=== PATIENT | female | born 1995 | race Two or more races ===

== ENCOUNTER 2025-07-17 13:14 | Inpatient (IN) | payer OTHER ==
[~2025-07-17] VITALS: Ht 162.6 cm; Wt 97.6 kg
[2025-07-17] MEDS: SODIUM CHLORIDE 0.9% 1,000 ML IV ONE ×3 (13:55→15:45)
[2025-07-17 14:32] VITALS: PULSE 106; RESP 16; O2SAT 98
[2025-07-17] MEDS: levETIRAcetam 1000 mg/100ml 100 ML IV ONE (14:44)
[2025-07-17] MEDS: LORazepam 2MG/ML-1ML VIAL IV ONE (14:44)
[2025-07-17] MEDS: LORazepam 2MG/ML-1ML VIAL ONE (14:44)
[2025-07-17 14:47] LABS: Urine Protein, UAD Negative (Negative)
[2025-07-17 14:50] VITALS: PULSE 126; RESP 24; O2SAT 100
--- NOTE | 2025-07-17 15:32 | DVH ---
CT HEAD WITHOUT CONTRAST Indication: seizure EXAM DATE: 07/17/2025 03:06 PM COMPARISON: None TECHNIQUE: CT of the head without intravenous contrast. RADIATION DOSE: CTDIvol: 57 mGy, DLP: 1021 mGy*cm FINDINGS: There is no intracranial hemorrhage. There is no extra-axial fluid, mass, mass effect or midline shift. The ventricles are midline and normal in size. Basilar cisterns are patent. Stewart-white differentiation is maintained. Bilateral maxillary sinus air-fluid levels.. Imaged portion of the orbits are unremarkable. IMPRESSION: No intracranial hemorrhage or mass effect. Paranasal sinus disease.
[2025-07-17 15:55] LABS: Hematocrit 35.6 % (36.0-46.0); Hemoglobin 12.2 g/dL (12.2-16.2); Mean Corpuscular Hemoglobin 30.8 pg (28.0-32.0); Mean Corpuscular Volume 89.9 fL (80.0-100.0); Nucleated Red Blood Cells % 0.0 %
[2025-07-17 16:03] LABS: Anion Gap 13 (5-15); Potassium 4.2 mmol/L (3.5-5.1); Sodium 142 mmol/L (136-145)
[2025-07-17 16:05] LABS: Carbon Dioxide 20 mmol/L (20-31); Chloride 109 mmol/L (98-107)
[2025-07-17 16:09] LABS: BUN/Creatinine Ratio 13.3 (10.0-20.0); Blood Urea Nitrogen 10 mg/dL (9-23)
[2025-07-17 16:10] LABS: Glucose 107 mg/dL (74-106)
[2025-07-17 16:19] LABS: Calcium 8.5 mg/dL (8.7-10.4)
--- NOTE | 2025-07-17 17:04 | ED.PDOC ---
History of Present Illness HPI Comments 30-year-old female brought by paramedics she had a seizure witnessed by family member. Patient did have alcohol last night. She normally does not drink. States that she does not have a history of seizures. Mild abrasion on the lateral side of the tongue. No other injuries. Denies any past medical surgica l history. Chief Complaint: Seizure Time Seen by MD: 13:21 Reviewed Notes: Nurses Notes, Medications, Allergies Allergies: Coded Allergies: NO KNOWN ALLERGIES (Unverified , 07/17/25) Information Source: Patient, Emergency Med Personnel Mode of Arrival: EMS Severity: Moderate Timing: Hours Duration: Since onset Past Medical History PAST MEDICAL HISTORY: Denies Surgical History: Denies all surgeries SENIOR APPLICATIONS ARCHITECT History: No Pertinent SENIOR APPLICATIONS ARCHITECT History Social History Smoker: Non-Smoker Alcohol: Denies ETOH Use Drugs: Denies Drug Use Constitutional: denies: chills, diaphoresis, fatigue, fever, malaise, sweats, weakness, others EENTM: denies: blurred vision, double vision, ear bleeding, ear discharge, ear drainage, ear pain, ear ringing, eye pain, eye redness, hearing loss, mouth pain, mouth swelling, nasal discharge, nose bleeding, nose congestion, nose pain, photophobia, tearing, throat pain, throat swelling, voice changes, others Respiratory: denies: cough, hemoptysis, orthopnea, SOB at rest, shortness of breath, SOB with excertion, stridor, wheezing, others Cardiovascular: denies: chest pain, dizzy spells, diaphoresis, Dyspnea on exertion, edema, irregular heart beat, left arm pain, lightheadedness, palpitations, PND, syncope, others Gastrointestinal: denies: abdomen distended, abdominal pain, blood streaked bowels, constipated, diarrhea, dysphagia, difficulty swallowing, hematemesis, melena, nausea, poor appetite, poor fluid intake, rectal bleeding, rectal pain, vomiting, others Genitourinary: denies: abnormal vagina bleeding, burning, dyspareunia, dysuria, flank pain, frequency, hematuria, incontinence, pain, , vagina discharge, urgency, others Neurological: reports: seizure; denies: dizziness, fainting, headache, left sided numbness, left sided weakness, numbness, paresthesia, pre-existing deficit, right sided numbness, right sided weakness, speech problems, tingling, tremors, weakness, others Musculoskeletal: denies: back pain, gout, joint pain, joint swelling, muscle p ain, muscle stiffness, neck pain, others Integumetry: denies: bruises, change in color, change in hair/nails, dryness, laceration, lesions, lumps, rash, wounds, others Allergic/Immunocompromised: denies: Difficulty Healing, Frequent Infections, Hives, Itching, others Hematologic/Lymphatic: denies: anemia, blood clots, easy bleeding, easy bruising, swollen glands, others Endocrine: denies: excessive hunger, excessive sweating, excessive thirst, excessive urination, flushing, intolerance to cold, intolerance to heat, unexplained weight gain, unexplained weight loss, others Psychiatric: denies: anxiety, bipolar disorder, depression, hopeless, panic disorder, schizophrenia, sleepless, suicidal, others Physical Exam General Appearance: Moderate Distress HEENT: Normal ENT Inspection, Pharynx Normal, TMs Normal Neck: Full Range of Motion, Non-Tender, Normal, Normal Inspection Respiratory: Chest Non-Tender, Lungs Clear, No Accessory Muscle Use, No Respiratory Distress, Normal Breath Sounds Cardiovascular: No Edema, No JVD, No Murmur, No Gallop, Normal Peripheral Pulses, Regular Rate/Rhythm Breast Exam: Deferred Gastrointestinal: No Organomegaly, Non Tender, No Pulsatile Mass, Normal Bowel Sounds, Soft Genitalia: Deferred Pelvic: Deferred Rectal: Deferred Extremities: No calf tenderness, Normal capillary refill, Normal inspection, Normal range of motion, Non-tender, No pedal edema Musculoskeletal : Apperance: Normal Neurologic: Alert, pattern generator operator II-XII nml as Tested, No Motor Deficits, Normal Affect, Normal Mood, No Sensory Deficits Cerebellar Function: Normal Reflexes: Normal Skin: Dry, Normal Color, Warm Peripheral Pulses: 3+ Radial (R), 3+ Radial (L) Lymphatic: No Adenopathy Was a procedure done? Was a procedure done?: No Differential Dx Considerations may include: Seizure X-Ray, Labs, Meds, VS Vital Signs Date Time Temp Pulse Resp B/P (MAP) Pulse Ox O2 Delivery O2 Flow Rate FiO2 07/17/25 14:50 98.5 126 24 121/66 (84) 97 98.5 07/17/25 14:50 126 24 100 Nasal Cannula* 2 07/17/25 14:32 106 16 98 Room Air* 0 21 07/17/25 13:55 98.3 106 16 142/86 (104) 98 98.3 07/17/25 13:17 98.3 106 16 142/86 98 98.3 Lab Test 07/17/25 15:18 07/17/25 14:44 07/17/25 14:00 Range/Units White Blood Count 14.5 H 4.4-10.8 10^3/uL Red Blood Count 3.95 L 4.0-5.20 10^6/uL Hemoglobin 12.2 12.2-16.2 g/dL Hematocrit 35.6 L 36.0-46.0 % Mean Corpuscular Volume 89.9 80.0-100.0 fL Mean Corpuscular Hemoglobin 30.8 28.0-32.0 pg Mean Corpuscular Hemoglobin Concent 34.2 32.0-36.0 g/dL Red Cell Distribution Width 12.9 11.8-14.3 % Platelet Count 212 140-450 10^3/uL Mean Platelet Volume 8.9 6.9-10.8 fL Neutrophils (%) (Auto) 90.1 H 37.0-80.0 % Lymphocytes (%) (Auto) 4.7 L 10.0-50.0 % Monocytes (%) (Auto) 4.9 0.0-12.0 % Eosinophils (%) (Auto) 0.0 0.0-7.0 % Basophils (%) (Auto) 0.3 0.0-2.0 % Neutrophils # (Auto) 13.1 H 1.6-8.6 10 ^3/uL Lymphocytes # (Auto) 0.7 0.4-5.4 10 ^3/uL Monocytes # (Auto) 0.7 0-1.3 10 ^3/uL Eosinophils # (Auto) 0 0-0.8 10 ^3/uL Basophils # (Auto) 0 0-0.2 10 ^3/uL Nucleated Red Blood Cells 0.0 % Sodium Level 142 136-145 mmol/L Potassium Level 4.2 3.5-5.1 mmol/L Chloride Level 109 H 98-107 mmol/L Carbon Dioxide Level 20 20-31 mmol/L Anion Gap 13 5-15 Blood Urea Nitrogen 10 9-23 mg/dL Creatinine 0.75 0.550-1.02 mg/dL Glomerular Filtration Rate Calc 109 >90 mL/min BUN/Creatinine Ratio 13.3 10.0-20.0 Serum Glucose 107 H 74-106 mg/dL Calcium Level 8.5 L 8.7-10.4 mg/dL Plasma/Serum Blood Alcohol < 3.0 <10 mg/dL POC Glucose 118 H 70-106 mg/dl Urine Color Light-yellow Yellow Urine Clarity Cloudy H Clear Urine pH 6.5 5.0-9.0 Urine Specific [place] 1.011 1.001-1.035 Urine Protein Negative Negative Urine Ketones Negative Negative Urine Blood Trace H Negative /uL Urine Nitrite Negative Negative Urine Bilirubin Negative Negative Urine Urobilinogen Normal Negative mg/dL Urine Leukocyte Esterase 3+ Negative /uL Urine RBC 3 0 - 4 /hpf Urine Microscopic WBC 118 H 0-5 /HPF Urine Squamous Epithelial Cells Few <5 /hpf Urine Bacteria Few H None Seen /hpf Urine Glucose Normal Normal mg/dL Current Medications Medications (Trade) Dose Ordered Sig/[place] Route Start Time Stop Time Status Last Admin Sodium Chloride 1,000 ml @ 1,000 mls/hr Q1H ONCE IV 07/17/25 13:45 07/17/25 14:44 DC 07/17/25 13:55 Levetiracetam 100 ml @ 400 mls/hr ONCE ONCE IV 07/17/25 14:45 07/17/25 14:59 DC 07/17/25 14:44 Sodium Chloride 1,000 ml @ 1,000 mls/hr Q1H ONCE IV 07/17/25 14:45 07/17/25 15:44 DC 07/17/25 14:44 Lorazepam (Ativan Inj) 1 mg ONCE ONCE IV 07/17/25 14:45 07/17/25 14:46 DC 07/17/25 14:44 Ceftriaxone Sodium 50 ml @ 100 mls/hr ONCE ONCE IV 07/17/25 16:15 07/17/25 16:44 DC 07/17/25 16:44 Patient alert. Vitals stable. Had a seizure prior to coming. Answering questions. An hour after she was in the ER she did have a seizure witnessed by staff. Confused after the seizure. Establish intravenous access. Was given fluids. Was given Keppra. Urinalysis shows UTI. Was given Rocephin. Explained to the patient. Continue monitoring. Time of 1ST Reevaluation: 17:01 Reevaluation 1ST: Unchanged Patient Education/Counseling: Diagnosis, Treatment, Prognosis Family Education/Counseling: No Family Present SEPSIS Sepsis Screen Date sepsis recognized/suspect: Jul 17, 2025 Time Sepsis recognized/suspect: 1449 Recent Procedure: No On Antibiotic Therapy: No Respiratory Rate >20: Yes Heart Rate >90: Yes Temp<36 C (96.8 F) or >38.3 C: No SBP <90 or MAP <65 mmHG: No New Acute Mental Status Change: No Is the patient on CPAP, BIPAP,: No Physician Orders Head Without Contrast (07/17/25 14:39) Sodium Chloride 0.9% (07/17/25 14:45) Vital Signs Date Time Temp Pulse Resp B/P (MAP) Pulse Ox O2 Delivery O2 Flow Rate FiO2 07/17/25 14:50 98.5 126 24 121/66 (84) 97 98.5 07/17/25 14:50 126 24 100 Nasal Cannula* 2 28 07/17/25 14:32 106 16 98 Room Air* 0 21 07/17/25 13:55 98.3 106 16 142/86 (104) 98 98.3 07/17/25 13:17 98.3 106 16 142/86 98 98.3 Laboratory Tests Test 07/17/25 15:18 White Blood Count 14.5 10^3/uL (4.4-10.8) H Medications Medications Dose Ordered Sig/[place] Route Start Time Stop Time Status Last Admin Dose Admin Ceftriaxone Sodium 50 ml @ 100 mls/hr ONCE ONCE IV 07/17/25 16:15 07/17/25 16:44 DC 07/17/25 16:44 Levetiracetam 100 ml @ 400 mls/hr ONCE ONCE IV 07/17/25 14:45 07/17/25 14:59 DC 07/17/25 14:44 Lorazepam 1 mg ONCE ONCE IV 07/17/25 14:45 07/17/25 14:46 DC 07/17/25 14:44 Sodium Chloride 1,000 ml @ 1,000 mls/hr Q1H ONCE IV 07/17/25 13:45 07/17/25 14:44 DC 07/17/25 13:55 Sodium Chloride 1,000 ml @ 1,000 mls/hr Q1H ONCE IV 07/17/25 14:45 07/17/25 15:44 DC 07/17/25 14:44 Departure 1 Departure Time of Disposition: 17:02 Impression: Primary Impression: Metabolic encephalopathy Additional Impressions: Seizure Urinary tract infection Qualified Codes: N39.0 - Urinary tract infection, site not specified Disposition: ADMITTED INPATIENT Admit to: Med Surg Condition: Guarded Critical Care Note Critical Care Time?: No Stability Stability form required: No Heart Score Heart Score: Heart Score Response (Comments) Value History N/A 0 EKG N/A 0 Age N/A 0 Risk Factors N/A 0 Troponin N/A 0 Total 0 MANSOOR BARNETT MD Jul 17, 2025 17:04
[2025-07-17 18:15] LABS: Alanine Aminotransferase 19 U/L (7-40); Albumin 4.2 g/dL (3.2-4.8); Alkaline Phosphatase 63 U/L (46-116); Total Protein 6.4 g/dL (5.7-8.2)
[2025-07-17 18:18] LABS: Bilirubin, Direct < 0.1 mg/dL (<0.3); Bilirubin, Total 0.3 mg/dL (0.2-1.0)
[2025-07-17] MEDS ORDERED: ACETAMINOPHEN 325 MG TAB PO PRN (18:45)
[2025-07-17] MEDS ORDERED: ONDANSETRON HCL 4 MG/2 ML VIAL IV PRN (18:45)
[2025-07-17] MEDS ORDERED: LORazepam 2MG/ML-1ML VIAL IV PRN (19:00)
[2025-07-17] MEDS: LACTATED RINGER'S 1,000 ML IV ONE ×3 (19:11→22:30)
[2025-07-17] MEDS: THIAMINE 100mg/ml INJ (200mg/2ml VIAL) IV ONE (19:11)
--- NOTE | 2025-07-17 19:22 | DVH ---
CHEST RADIOGRAPH Indication: SOB Technique: Single frontal view of the chest was obtained Comparison: None FINDINGS: Lines and Tubes: None Lungs: No focal consolidation. Pleura: No effusion. No pneumothorax. Cardiomediastinal contours: Unremarkable Bones: No acute osseous abnormality. IMPRESSION: 1. No acute cardiopulmonary disease.
[2025-07-17 19:30] VITALS: PULSE 96; RESP 17; O2SAT 99
[2025-07-17 20:08] LABS: COVID19 ANTIGEN SOFIA FIA NEGATIVE (NEGATIVE)
[2025-07-17] MEDS: levETIRAcetam 500 mg/100ml 100 ML IV SCH (21:23)
--- NOTE | 2025-07-17 21:29 | DVHHPRES ---
History of Present Illness Resident Creating Document: JHNAIMAKIP RESIDENT History of Present Illness Patient is a 30-year-old female with no significant medical history who was brought to the ED via EMS after she had episode of seizure earlier this morning. As per the witness patient had a seizure-like activity with abnormal movement of her limbs, lip bite, no postictal confusion following which the EMS were called and the patient was brought to the ED for further evaluation. While in the ED patient had another seizure-like activity with incontinence. She does not report any history of seizure disorder/epilepsy. She is visiting her family and yesterday had quite a bit of alcohol. Denied any drug use. While in the ED patient was seen to have elevated WBC count with left shift, urinalysis positive for UTI, patient reported some suprapubic discomfort but denied any dysuria, fever, chills, nausea or vomiting, diarrhea, cough or phlegm. She reports that she recently recovered from a flu-like illness. Past medical history: None Surgical history: None Social history: Patient reports alcohol use quite often denies any drug use or smoking No home medications Review of Systems Constitutional: Yes: Weakness Eyes: No: Pain, Vision change, Conjunctivae inflammation, Eyelid inflammation, Other, Redness ENT: No: Ear pain, Ear discharge, Nose pain, Nose discharge, Nose congestion, Mouth pain, Mouth swelling, Throat pain, Throat swelling, Other Respiratory: No: Cough, Dry, Shortness of breath, SOB with excertion, Wheezing, Hemoptysis, Pleuritic Pain, Sputum, Wheezing, Other Cardiovascular: No: Chest Pain, Palpitations, Orthopnea, Paroxysmal Noc. Dyspnea, Edema, Lt Headedness, Other Gastrointestinal: No: Nausea, Vomiting, Abdominal Pain, Diarrhea, Constipation, Melena, Hematochezia, Other Genitourinary: Frequency Musculoskeletal: No: other, neck pain, shoulder pain, arm pain, back pain, hand pain, leg pain, foot pain Skin: No: Rash, Lesions, Jaundice, Bruising, Other Neurological: No: Weakness, Numbness, Incoordination, Change in speech, Confusion, Seizures, Other Allergies: Coded Allergies: NO KNOWN ALLERGIES (Unverified , 07/17/25) Medications Current Medications Medications Dose Ordered Sig/[place] Route Start Time Stop Time Status Last Admin Dose Admin Ceftriaxone Sodium 50 ml @ 100 mls/hr DAILY@09 IV 07/18/25 09:00 Levetiracetam 100 ml @ 400 mls/hr BID IV 07/17/25 22:00 Ondansetron HCl 4 mg Q6HPRN PRN IV 07/17/25 18:45 Acetaminophen 650 mg Q6HP PRN PO 07/17/25 18:45 Lorazepam 1 mg Q5MINP PRN IV 07/17/25 19:00 Exam Vital Signs Vital Signs Date Time Temp Pulse Resp B/P (MAP) Pulse Ox O2 Delivery O2 Flow Rate FiO2 07/17/25 19:30 96 17 99 Room Air* 0 21 07/17/25 19:30 98.9 111/63 (79) 98.9 Exam Skin - Patients skin is warm and dry. HEENT - normocephalic, atraumatic, moist mucous membranes, no conjunctival pallor, no icterus Neck - full ROM, no LAD, no JVD Pulmonary - B/L clear breath sounds without any wheezing or rales cardiovascular - regular S1,S2 heard, no added sounds, no murmurs heard. GI - soft, nontender abdomen. no hepatospleenomegaly. Bowel sounds normoactive Neurological - Patient is A/O X 4 . Bilateral upper extremity strength 5/5, bilateral lower extremity strength 5/5, no facial droop, normal speech, no tremor, no sensory deficiets. Labs/Xrays Labs Test 07/17/25 18:15 07/17/25 18:10 07/17/25 15:18 07/17/25 14:44 Range/Units Influenza Type A Antigen Negative Negative Influenza Type B Antigen Negative Negative SARS-CoV-2 Antigen (Rapid) Negative NEGATIVE Lactic Acid Level 1.3 0.4-2.0 mmol/L White Blood Count 14.5 H 4.4-10.8 10^3/uL Red Blood Count 3.95 L 4.0-5.20 10^6/uL Hemoglobin 12.2 12.2-16.2 g/dL Hematocrit 35.6 L 36.0-46.0 % Mean Corpuscular Volume 89.9 80.0-100.0 fL Mean Corpuscular Hemoglobin 30.8 28.0-32.0 pg Mean Corpuscular Hemoglobin Concent 34.2 32.0-36.0 g/dL Red Cell Distribution Width 12.9 11.8-14.3 % Platelet Count 212 140-450 10^3/uL Mean Platelet Volume 8.9 6.9-10.8 fL Neutrophils (%) (Auto) 90.1 H 37.0-80.0 % Lymphocytes (%) (Auto) 4.7 L 10.0-50.0 % Monocytes (%) (Auto) 4.9 0.0-12.0 % Eosinophils (%) (Auto) 0.0 0.0-7.0 % Basophils (%) (Auto) 0.3 0.0-2.0 % Neutrophils # (Auto) 13.1 H 1.6-8.6 10 ^3/uL Lymphocytes # (Auto) 0.7 0.4-5.4 10 ^3/uL Monocytes # (Auto) 0.7 0-1.3 10 ^3/uL Eosinophils # (Auto) 0 0-0.8 10 ^3/uL Basophils # (Auto) 0 0-0.2 10 ^3/uL Nucleated Red Blood Cells 0.0 % Sodium Level 142 136-145 mmol/L Potassium Level 4.2 3.5-5.1 mmol/L Chloride Level 109 H 98-107 mmol/L Carbon Dioxide Level 20 20-31 mmol/L Anion Gap 13 5-15 Blood Urea Nitrogen 10 9-23 mg/dL Creatinine 0.75 0.550-1.02 mg/dL Glomerular Filtration Rate Calc 109 >90 mL/min BUN/Creatinine Ratio 13.3 10.0-20.0 Serum Glucose 107 H 74-106 mg/dL Calcium Level 8.5 L 8.7-10.4 mg/dL Total Bilirubin 0.3 0.2-1.0 mg/dL Direct Bilirubin < 0.1 <0.3 mg/dL Aspartate Amino Transferase (AST) 25 13-40 U/L Alanine Aminotransferase (ALT) 19 7-40 U/L Alkaline Phosphatase 63 46-116 U/L Total Protein 6.4 5.7-8.2 g/dL Albumin 4.2 3.2-4.8 g/dL Beta HCG, Quantitative 1.3 L 1.5-4.2 mIU/mL Plasma/Serum Blood Alcohol < 3.0 <10 mg/dL POC Glucose 118 H 70-106 mg/dl Test 07/17/25 14:00 Range/Units Urine Color Light-yellow Yellow Urine Clarity Cloudy H Clear Urine pH 6.5 5.0-9.0 Urine Specific [place] 1.011 1.001-1.035 Urine Protein Negative Negative Urine Ketones Negative Negative Urine Blood Trace H Negative /uL Urine Nitrite Negative Negative Urine Bilirubin Negative Negative Urine Urobilinogen Normal Negative mg/dL Urine Leukocyte Esterase 3+ Negative /uL Urine RBC 3 0 - 4 /hpf Urine Microscopic WBC 118 H 0-5 /HPF Urine Squamous Epithelial Cells Few <5 /hpf Urine Bacteria Few H None Seen /hpf Urine Glucose Normal Normal mg/dL SEPSIS Sepsis Screen Date sepsis recognized/suspect: Jul 17, 2025 Time Sepsis recognized/suspect: 1929 Recent Procedure: No On Antibiotic Therapy: No Respiratory Rate >20: No Heart Rate >90: Yes Temp<36 C (96.8 F) or >38.3 C: No SBP <90 or MAP <65 mmHG: No New Acute Mental Status Change: No Is the patient on CPAP, BIPAP,: No Physician Orders Head Without Contrast (07/17/25 14:39) Admit (07/17/25 17:50) Oxygen By Nasal Cannula (07/17/25 17:50) Stat Ekg For Chest Pain (07/17/25 17:50) Notify Md Of Changes From Base (07/17/25 17:50) Burn Center Nurse For 24 Hours (07/17/25 17:50) Emergency Dysrhythmia Protocol (07/17/25 17:50) Blood Culture (07/17/25 17:50) Urine Bacterial Culture (07/17/25 17:50) Chest Xray 1 View (07/17/25 17:50) Ceftriaxone 1gm/50ml (Rocephin) (07/18/25 09:00) * Neurology Consult (07/17/25 18:34) Levetiracetam 500 Mg/100ml (Levetiraceta (07/17/25 22:00) Ondansetron Hcl (Zofran) (07/17/25 18:45) Acetaminophen Tablet (Tylenol Tablet) (07/17/25 18:45) Lactated Ringer's (07/17/25 20:00) Regular Diet (07/18/25 Breakfast) Lorazepam 2mg/Ml Inj (Ativan Inj) (07/17/25 19:00) Complete Blood Count (07/18/25 04:00) Basic Metabolic Panel (07/18/25 04:00) Vital Signs Date Time Temp Pulse Resp B/P (MAP) Pulse Ox O2 Delivery O2 Flow Rate FiO2 07/17/25 19:30 96 17 99 Room Air* 0 21 07/17/25 19:30 98.9 96 17 111/63 (79) 99 98.9 07/17/25 17:31 98.6 104 15 107/71 (83) 98 98.6 07/17/25 14:50 98.5 126 24 121/66 (84) 97 98.5 07/17/25 14:50 126 24 100 Nasal Cannula* 2 28 07/17/25 14:32 106 16 98 Room Air* 0 21 07/17/25 13:55 98.3 106 16 142/86 (104) 98 98.3 Laboratory Tests Test 07/17/25 15:18 07/17/25 18:10 White Blood Count 14.5 10^3/uL (4.4-10.8) H Lactic Acid Level 1.3 mmol/L (0.4-2.0) Medications Medications Dose Ordered Sig/[place] Route Start Time Stop Time Status Last Admin Dose Admin Ceftriaxone Sodium 50 ml @ 100 mls/hr ONCE ONCE IV 07/17/25 16:15 07/17/25 16:44 DC 07/17/25 16:44 100 MLS/HR Lactated Ringer's 1,000 ml @ 100 mls/hr Q10H ONCE IV 07/17/25 20:00 07/18/25 05:59 07/17/25 20:22 100 MLS/HR Lactated Ringer's 1,000 ml @ 500 mls/hr Q2H ONCE IV 07/17/25 18:00 07/17/25 19:59 DC 07/17/25 19:11 500 MLS/HR Levetiracetam 100 ml @ 400 mls/hr ONCE ONCE IV 07/17/25 14:45 07/17/25 14:59 DC 07/17/25 14:44 400 MLS/HR Lorazepam 1 mg ONCE ONCE IV 07/17/25 14:45 07/17/25 14:46 DC 07/17/25 14:44 1 MG Sodium Chloride 1,000 ml @ 1,000 mls/hr Q1H ONCE IV 07/17/25 13:45 07/17/25 14:44 DC 07/17/25 13:55 1,000 MLS/HR Sodium Chloride 1,000 ml @ 1,000 mls/hr Q1H ONCE IV 07/17/25 14:45 07/17/25 15:44 DC 07/17/25 14:44 1,000 MLS/HR Thiamine HCl 100 mg ONCE ONCE IV 07/17/25 18:30 07/17/25 18:35 DC 07/17/25 19:11 100 MG Assessment/Plan Assessment/Plan Seizures likely from sepsis/dehydration, r/o neurological cause Sepsis likely due to UTI - blood culture, urine culture pending - IV ceftriaxone - IV fluids - head CT showed no intracranial hemorrhage or mass effect, paranasal sinus disease seen - Keppra 500 IV b.i.d. - neurology consult PUD prophylaxis: Protonix Goals of care discussed with the patient and her boyfriend at bedside for over 90 minutes. Full code Time spent: 32 minutes Plan discussed with Dr. Horton Plan discussed with: Patient, Other (partner, RN) My Orders Orders - KIP CM RESIDENT Procedure Category Date Status Time Admit ADMIT 07/17/25 Transmitted 17:50 Oxygen By Nasal RT 07/17/25 Transmitted Cannula 17:50 Stat Ekg For Chest [facility] 07/17/25 In Process Pain 17:50 Notify Of Changes [facility] 07/17/25 In Process From Base 17:50 Burn Center Nurse For [facility] 07/17/25 In Process 24 Hours 17:50 Emergency Dysrhythmia [facility] 07/17/25 In Process Protocol 17:50 Blood Culture [facility] 07/17/25 In Process 17:50 Urine Bacterial [facility] 07/17/25 In Process Culture 17:50 Chest Xray 1 View XY 07/17/25 Resulted 17:50 Ceftriaxone 1gm/50ml [facility] 07/18/25 In Process (Rocephin) 09:00 * Neurology Consult CONS 07/17/25 Transmitted 18:34 Levetiracetam 500 PHA 07/17/25 In Process Mg/100ml (Levetiraceta 22:00 Ondansetron Hcl [facility]A 07/17/25 In Process (Zofran) 18:45 Acetaminophen Tablet [facility] 07/17/25 In Process (Tylenol Tablet) 18:45 Lactated Ringer's [facility] 07/17/25 In Process 20:00 Regular Diet DIET 07/18/25 Transmitted Breakfast Lorazepam 2mg/Ml Inj [facility] 07/17/25 In Process (Ativan Inj) 19:00 Complete Blood Count LAB 07/18/25 Verified 04:00 Basic Metabolic Panel LAB 07/18/25 Verified 04:00 Date of Service: Jul 17, 2025 Billing Provider: REHAN HORTON MD Common Visit Codes: [id number] INP/OBS CARE (HIGH) Secondary Visit Codes: [id number] CARE PLAN 30 MINUTES KIP CM RESIDENT Jul 17, 2025 21:29
[2025-07-17 22:29] VITALS: BP 123/84; PULSE 86; RESP 19; TEMP 98.6; O2SAT 94
[2025-07-18] VITALS (7 sets, daily range): BP systolic 108–127; BP diastolic 70–91; PULSE 65–93; RESP 17–19; TEMP 98.3–99; O2SAT 95–100
[2025-07-18] MEDS: PANTOPRAZOLE 40 MG TAB PO SCH (05:33)
[2025-07-18 07:02] LABS: Hematocrit 33.2 % (36.0-46.0); Hemoglobin 11.4 g/dL (12.2-16.2); Mean Corpuscular Hemoglobin 30.9 pg (28.0-32.0); Mean Corpuscular Volume 89.4 fL (80.0-100.0); Nucleated Red Blood Cells % 0.0 %
[2025-07-18 07:13] LABS: Sodium 144 mmol/L (136-145)
[2025-07-18 07:14] LABS: Anion Gap 8 (5-15); Calcium 8.4 mg/dL (8.7-10.4); Carbon Dioxide 26 mmol/L (20-31); Chloride 110 mmol/L (98-107); Potassium 3.5 mmol/L (3.5-5.1)
[2025-07-18 07:19] LABS: BUN/Creatinine Ratio 10.0 (10.0-20.0); Glucose 79 mg/dL (74-106)
[2025-07-18 07:20] LABS: Blood Urea Nitrogen 7 mg/dL (9-23)
[2025-07-19] VITALS (8 sets, daily range): BP systolic 103–132; BP diastolic 62–83; PULSE 67–86; RESP 14–19; TEMP 97.6–98.3; O2SAT 94–99
--- NOTE | 2025-07-20 00:35 | DVHPN2 ---
Reviewed: Care Plan, H&P, Labs, Medications, Previous Orders, Radiology Changes from previous H/P or p: No Changes General: Per HPI Eyes: No Pain, No Vision change, No Conjunctivae inflammation, No Eyelid inflammation, No Other, No Redness ENT: No Ear pain, No Ear discharge, No Nose pain, No Nose discharge, No Nose congestion, No Mouth pain, No Mouth swelling, No Throat pain, No Throat swelling, No Other Cardiovascular: No Chest Pain, No Palpitations, No Orthopnea, No Paroxysmal Noc. Dyspnea, No Edema, No Lt Headedness, No Other Respiratory: No Cough, No Dry, No Shortness of breath, No SOB with excertion, No Wheezing, No Hemoptysis, No Pleuritic Pain, No Sputum, No Other Gastrointestinal: No Nausea, No Vomiting, No Abdominal Pain, No Diarrhea, No Constipation, No Melena, No Hematochezia, No Other Genitourinary: Frequency Musculoskeletal: No other, No neck pain, No shoulder pain, No arm pain, No back pain, No hand pain, No leg pain, No foot pain Skin: No Rash, No Lesions, No Jaundice, No Bruising, No Other Objective Vitals Vital Signs Date Time Temp Pulse Resp B/P (MAP) Pulse Ox O2 Delivery O2 Flow Rate FiO2 07/19/25 21:00 97.6 78 18 126/83 (97) 99 97.6 07/19/25 20:00 Room Air* 0 21 Intake/Output Intake and Output 07/20/25 07:00 Intake Total 1180 ml Balance 1180 ml Intake Oral 1080 ml IV Total 100 ml # Voids 4 # Bowel Movements 1 General Appearance: Alert, Oriented X3 Cardiovascular: Regular rate, Normal S1, Normal S2 Abdomen: Normal bowel sounds Medications Current Medications Medications Dose Ordered Sig/[place] Route Start Time Stop Time Status Last Admin Dose Admin Ceftriaxone Sodium 50 ml @ 100 mls/hr DAILY@09 IV 07/18/25 09:00 07/18/25 10:22 100 MLS/HR Levetiracetam 100 ml @ 400 mls/hr BID IV 07/17/25 22:00 07/19/25 22:17 400 MLS/HR Ondansetron HCl 4 mg Q6HPRN PRN IV 07/17/25 18:45 Acetaminophen 650 mg Q6HP PRN PO 07/17/25 18:45 Lorazepam 1 mg Q5MINP PRN IV 07/17/25 19:00 Pantoprazole Sodium 40 mg DAILY@0600 PO 07/18/25 06:00 07/19/25 05:17 40 MG Laboratory Results Laboratory Tests 07/18/25 06:53 Urinalysis Test 07/17/25 14:00 Urine Color Light-yellow (Yellow) Urine Clarity Cloudy (Clear) H Urine pH 6.5 (5.0-9.0) Urine Specific [place] 1.011 (1.001-1.035) Urine Protein Negative (Negative) Urine Ketones Negative (Negative) Urine Blood Trace /uL (Negative) H Urine Nitrite Negative (Negative) Urine Bilirubin Negative (Negative) Urine Urobilinogen Normal mg/dL (Negative) Urine Leukocyte Esterase 3+ /uL (Negative) Urine RBC 3 /hpf (0 - 4) Urine Microscopic WBC 118 /HPF (0-5) H Urine Squamous Epithelial Cells Few /hpf (<5) Urine Bacteria Few /hpf (None Seen) H Urine Glucose Normal mg/dL (Normal) Microbiology Microbiology Date/Time Source Procedure Growth Status 07/17/25 18:15 Blood Blood Culture - Preliminary NO GROWTH AFTER 48 HOURS OF INCUBATION. Resulted 07/17/25 14:00 Voided Urine Urine Culture - Final Escherichia coli Complete Labs and/or images reviewed: Labs reviewed by me, Image(s) reviewed by me Assessment/Plan Assessment/Plan Patient is a 30-year-old female with no significant medical history who was brought to the ED via EMS after she had episode of seizure earlier this morning. As per the witness patient had a seizure-like activity with abnormal movement of her limbs, lip bite, no postictal confusion following which the EMS were called and the patient was brought to the ED for further evaluation. While in the ED patient had another seizure-like activity with incontinence. She does not report any history of seizure disorder/epilepsy. She is visiting her family and yesterday had quite a bit of alcohol. Denied any drug use. While in the ED patient was seen to have elevated WBC count with left shift, urinalysis positive for UTI, patient reported some suprapubic discomfort but denied any dysuria, fever, chills, nausea or vomiting, diarrhea, cough or phlegm. She reports that she recently recovered from a flu-like illness. Past medical history: None Surgical history: None Social history: Patient reports alcohol use quite often denies any drug use or smoking No home medications Seizures likely from sepsis/dehydration, r/o neurological cause Sepsis likely due to UTI - blood culture, urine culture pending - IV ceftriaxone - IV fluids - head CT showed no intracranial hemorrhage or mass effect, paranasal sinus disease seen seizure - Keppra 500 IV b.i.d. - neurology consult PUD prophylaxis: Protonix Plan discussed with: Patient My Orders Orders - AMANDA VALENZUELA DO Procedure Category Date Status Time Complete Blood Count LAB 07/20/25 Logged 04:00 Basic Metabolic Panel LAB 07/20/25 Logged 04:00 Date of Service: Jul 18, 2025 Billing Provider: AMANDA VALENZUELA DO Common Visit Codes: [id number] INP/OBS CARE(HIGH) AMANDA VALENZUELA DO Jul 20, 2025 00:35
--- NOTE | 2025-07-20 00:44 | DVHPN2 ---
Reviewed: Care Plan, H&P, Labs, Medications, Previous Orders, Radiology Changes from previous H/P or p: No Changes General: Per HPI Eyes: No Pain, No Vision change, No Conjunctivae inflammation, No Eyelid inflammation, No Other, No Redness ENT: No Ear pain, No Ear discharge, No Nose pain, No Nose discharge, No Nose congestion, No Mouth pain, No Mouth swelling, No Throat pain, No Throat swelling, No Other Cardiovascular: No Chest Pain, No Palpitations, No Orthopnea, No Paroxysmal Noc. Dyspnea, No Edema, No Lt Headedness, No Other Respiratory: No Cough, No Dry, No Shortness of breath, No SOB with excertion, No Wheezing, No Hemoptysis, No Pleuritic Pain, No Sputum, No Other Gastrointestinal: No Nausea, No Vomiting, No Abdominal Pain, No Diarrhea, No Constipation, No Melena, No Hematochezia, No Other Genitourinary: Frequency Musculoskeletal: No other, No neck pain, No shoulder pain, No arm pain, No back pain, No hand pain, No leg pain, No foot pain Skin: No Rash, No Lesions, No Jaundice, No Bruising, No Other Objective Vitals Vital Signs Date Time Temp Pulse Resp B/P (MAP) Pulse Ox O2 Delivery O2 Flow Rate FiO2 07/19/25 21:00 97.6 78 18 126/83 (97) 99 97.6 07/19/25 20:00 Room Air* 0 21 Intake/Output Intake and Output 07/20/25 07:00 Intake Total 1180 ml Balance 1180 ml Intake Oral 1080 ml IV Total 100 ml # Voids 4 # Bowel Movements 1 General Appearance: Alert, Oriented X3 Cardiovascular: Regular rate, Normal S1, Normal S2 Abdomen: Normal bowel sounds Medications Current Medications Medications Dose Ordered Sig/[place] Route Start Time Stop Time Status Last Admin Dose Admin Ceftriaxone Sodium 50 ml @ 100 mls/hr DAILY@09 IV 07/18/25 09:00 07/18/25 10:22 100 MLS/HR Levetiracetam 100 ml @ 400 mls/hr BID IV 07/17/25 22:00 07/19/25 22:17 400 MLS/HR Ondansetron HCl 4 mg Q6HPRN PRN IV 07/17/25 18:45 Acetaminophen 650 mg Q6HP PRN PO 07/17/25 18:45 Lorazepam 1 mg Q5MINP PRN IV 07/17/25 19:00 Pantoprazole Sodium 40 mg DAILY@0600 PO 07/18/25 06:00 07/19/25 05:17 40 MG Laboratory Results Laboratory Tests 07/18/25 06:53 Urinalysis Test 07/17/25 14:00 Urine Color Light-yellow (Yellow) Urine Clarity Cloudy (Clear) H Urine pH 6.5 (5.0-9.0) Urine Specific [place] 1.011 (1.001-1.035) Urine Protein Negative (Negative) Urine Ketones Negative (Negative) Urine Blood Trace /uL (Negative) H Urine Nitrite Negative (Negative) Urine Bilirubin Negative (Negative) Urine Urobilinogen Normal mg/dL (Negative) Urine Leukocyte Esterase 3+ /uL (Negative) Urine RBC 3 /hpf (0 - 4) Urine Microscopic WBC 118 /HPF (0-5) H Urine Squamous Epithelial Cells Few /hpf (<5) Urine Bacteria Few /hpf (None Seen) H Urine Glucose Normal mg/dL (Normal) Microbiology Microbiology Date/Time Source Procedure Growth Status 07/17/25 18:15 Blood Blood Culture - Preliminary NO GROWTH AFTER 48 HOURS OF INCUBATION. Resulted 07/17/25 14:00 Voided Urine Urine Culture - Final Escherichia coli Complete Assessment/Plan Assessment/Plan Patient is a 30-year-old female with no significant medical history who was brought to the ED via EMS after she had episode of seizure earlier this morning. As per the witness patient had a seizure-like activity with abnormal movement of her limbs, lip bite, no postictal confusion following which the EMS were called and the patient was brought to the ED for further evaluation. While in the ED patient had another seizure-like activity with incontinence. She does not report any history of seizure disorder/epilepsy. She is visiting her family and yesterday had quite a bit of alcohol. Denied any drug use. While in the ED patient was seen to have elevated WBC count with left shift, urinalysis positive for UTI, patient reported some suprapubic discomfort but denied any dysuria, fever, chills, nausea or vomiting, diarrhea, cough or phlegm. She reports that she recently recovered from a flu-like illness. Past medical history: None Surgical history: None Social history: Patient reports alcohol use quite often denies any drug use or smoking No home medications Seizures likely from sepsis/dehydration, r/o neurological cause Sepsis likely due to UTI - blood culture, urine culture pending - IV ceftriaxone - IV fluids - head CT showed no intracranial hemorrhage or mass effect, paranasal sinus disease seen seizure - Keppra 500 IV b.i.d. - neurology consult PUD prophylaxis: Protonix Plan discussed with: Patient My Orders Orders - AMANDA VALENZUELA DO Procedure Category Date Status Time Complete Blood Count LAB 07/20/25 Logged 04:00 Basic Metabolic Panel LAB 07/20/25 Logged 04:00 Date of Service: Jul 19, 2025 Billing Provider: AMANDA VALENZUELA DO Common Visit Codes: [id number] INP/OBS CARE(HIGH) AMANDA VALENZUELA DO Jul 20, 2025 00:44
[2025-07-20 01:00] VITALS: BP 107/70; PULSE 64; RESP 17; TEMP 97.8; O2SAT 99
[2025-07-20 05:00] VITALS: BP 109/75; PULSE 71; RESP 17; TEMP 98.2; O2SAT 100
[2025-07-20 06:03] LABS: Hematocrit 38.8 % (36.0-46.0); Hemoglobin 13.2 g/dL (12.2-16.2); Mean Corpuscular Hemoglobin 30.3 pg (28.0-32.0); Mean Corpuscular Volume 89.1 fL (80.0-100.0); Nucleated Red Blood Cells % 0.1 %
[2025-07-20 06:15] LABS: Anion Gap 11 (5-15); Calcium 9.0 mg/dL (8.7-10.4); Carbon Dioxide 25 mmol/L (20-31); Potassium 3.9 mmol/L (3.5-5.1); Sodium 143 mmol/L (136-145)
[2025-07-20 06:19] LABS: Chloride 107 mmol/L (98-107)
[2025-07-20 06:21] LABS: BUN/Creatinine Ratio 13.3 (10.0-20.0)
[2025-07-20 06:44] LABS: Blood Urea Nitrogen 8 mg/dL (9-23); Glucose 71 mg/dL (74-106)
[2025-07-20 08:00] VITALS: PULSE 73; PULSE 77; RESP 14; O2SAT 98
[2025-07-20 09:00] VITALS: BP 133/76; PULSE 76; RESP 17; TEMP 98.4; O2SAT 98
[2025-07-20 12:04] LABS: Hepatitis B Surface Antigen Negative (Negative)
[2025-07-20 12:18] LABS: Hepatitis C Antibody Negative (Negative)
[2025-07-20 13:00] VITALS: BP 129/73; PULSE 68; RESP 17; TEMP 98.3; O2SAT 96
[2025-07-20] MEDS ORDERED: LEVE500T40 PO (15:57)
[2025-07-20] MEDS ORDERED: CIPR500T4 PO (15:57)
[2025-07-20 16:28] VITALS: BP 129/73; PULSE 68; RESP 17; TEMP 98.4; O2SAT 96
--- NOTE | 2025-07-20 17:07 | DVHDS2 ---
Discharge Summary Date of Admission Jul 17, 2025 at 17:50 Date of Discharge: Jul 20, 2025 Labs/Diagnostic Data: Laboratory Results Test 07/20/25 04:56 07/18/25 06:53 07/17/25 18:15 07/17/25 18:10 White Blood Count 8.6 10^3/uL (4.4-10.8) Red Blood Count 4.36 10^6/uL (4.0-5.20) Hemoglobin 13.2 g/dL (12.2-16.2) Hematocrit 38.8 % (36.0-46.0) Mean Corpuscular Volume 89.1 fL (80.0-100.0) Mean Corpuscular Hemoglobin 30.3 pg (28.0-32.0) Mean Corpuscular Hemoglobin Concent 34.0 g/dL (32.0-36.0) Red Cell Distribution Width 13.1 % (11.8-14.3) Platelet Count 217 10^3/uL (140-450) Mean Platelet Volume 8.9 fL (6.9-10.8) Neutrophils (%) (Auto) 56.2 % (37.0-80.0) Lymphocytes (%) (Auto) 32.6 % (10.0-50.0) Monocytes (%) (Auto) 8.0 % (0.0-12.0) Eosinophils (%) (Auto) 2.3 % (0.0-7.0) Basophils (%) (Auto) 0.9 % (0.0-2.0) Neutrophils # (Auto) 4.9 10 ^3/uL (1.6-8.6) Lymphocytes # (Auto) 2.8 10 ^3/uL (0.4-5.4) Monocytes # (Auto) 0.7 10 ^3/uL (0-1.3) Eosinophils # (Auto) 0.2 10 ^3/uL (0-0.8) Basophils # (Auto) 0.1 10 ^3/uL (0-0.2) Nucleated Red Blood Cells 0.1 % Sodium Level 143 mmol/L (136-145) Potassium Level 3.9 mmol/L (3.5-5.1) Chloride Level 107 mmol/L (98-107) Carbon Dioxide Level 25 mmol/L (20-31) Anion Gap 11 (5-15) Blood Urea Nitrogen 8 mg/dL (9-23) Creatinine 0.60 mg/dL (0.550-1.02) Glomerular Filtration Rate Calc 123 mL/min (>90) BUN/Creatinine Ratio 13.3 (10.0-20.0) Serum Glucose 71 mg/dL (74-106) Calcium Level 9.0 mg/dL (8.7-10.4) Hepatitis B Surface Antigen Negative (Negative) Hepatitis C Antibody Negative (Negative) Influenza Type A Antigen Negative (Negative) Influenza Type B Antigen Negative (Negative) SARS-CoV-2 Antigen (Rapid) Negative (NEGATIVE) Lactic Acid Level 1.3 mmol/L (0.4-2.0) Test 07/17/25 15:18 07/17/25 14:44 07/17/25 14:00 Total Bilirubin 0.3 mg/dL (0.2-1.0) Direct Bilirubin < 0.1 mg/dL (<0.3) Aspartate Amino Transferase (AST) 25 U/L (13-40) Alanine Aminotransferase (ALT) 19 U/L (7-40) Alkaline Phosphatase 63 U/L (46-116) Total Protein 6.4 g/dL (5.7-8.2) Albumin 4.2 g/dL (3.2-4.8) Beta HCG, Quantitative 1.3 mIU/mL (1.5-4.2) Plasma/Serum Blood Alcohol < 3.0 mg/dL (<10) POC Glucose 118 mg/dl (70-106) Urine Color Light-yellow (Yellow) Urine Clarity Cloudy (Clear) Urine pH 6.5 (5.0-9.0) Urine Specific [place] 1.011 (1.001-1.035) Urine Protein Negative (Negative) Urine Ketones Negative (Negative) Urine Blood Trace /uL (Negative) Urine Nitrite Negative (Negative) Urine Bilirubin Negative (Negative) Urine Urobilinogen Normal mg/dL (Negative) Urine Leukocyte Esterase 3+ /uL (Negative) Urine RBC 3 /hpf (0 - 4) Urine Microscopic WBC 118 /HPF (0-5) Urine Squamous Epithelial Cells Few /hpf (<5) Urine Bacteria Few /hpf (None Seen) Urine Glucose Normal mg/dL (Normal) Other Laboratory Tests 07/20/25 04:56 Brief Hx & Hospital Course: Patient is a 30-year-old female with no significant medical history who was brought to the ED via EMS after she had episode of seizure earlier this morning. As per the witness patient had a seizure-like activity with abnormal movement of her limbs, lip bite, no postictal confusion following which the EMS were called and the patient was brought to the ED for further evaluation. While in the ED patient had another seizure-like activity with incontinence. She does not report any history of seizure disorder/epilepsy. She is visiting her family and yesterday had quite a bit of alcohol. Denied any drug use. While in the ED patient was seen to have elevated WBC count with left shift, urinalysis positive for UTI, patient reported some suprapubic discomfort but denied any dysuria, fever, chills, nausea or vomiting, diarrhea, cough or phlegm. She reports that she recently recovered from a flu-like illness. During hospital stay had UTI with no bacteremia started on keppra no recurrent seizures, most likely alcohol related Seen by neurology and recommended continued on keppra and need to follow up with outpatient neurology in [place] Condition at Discharge: Good Final Diagnosis/Problems List seizures UTI Discharge Disposition: Home Discharge Instruct/Medications Diet: Regular Activity: No Restrictions, As Tolerated Follow Up/Referral: PCP and neurology in 7 days Medications: keppra and ciprofloxacin Scheduled Ciprofloxacin Hcl (Ciprofloxacin Hcl), 1 TAB PO BID Levetiracetam (Keppra), 1 TAB PO BID Discharge Statement: "Patient was advised to return to the ER or call 911 if any headaches, dizziness, shortness of breath, chest pain, abdominal pain, bleeding, fevers, or worsening of medical condition. Patient was counseled about treatment plan, medications, possible side effects, patientverbalized understanding. All questions were answered to the best of my ability. This discharge took greater then 30 minutes in planning, reviewing documentation, counseling the patient, and discussing with other team members." ASSESSMENT ASSESSMENT Assessment seizures UTI Date of Service: Jul 20, 2025 Billing Provider: LISA WHEELER MD Common Visit Codes: [id number]-OEP/OBS DISCH DAY >30min LISA WHEELER MD Jul 20, 2025 17:07
--- NOTE | 2025-07-20 17:07 | BSKYNEURO ---
[facility] Note # Demographics Consult Type: General Neurology Patient Location: Inpatient First Name: SHELLIE Last Name: RAHEEM Date of : 1995 Age: 30 Gender: Female Facility: [facility] Time of Initial Page (): 07/20/2025 11:56 First Contact with Site (): 07/20/2025 11:57 # HPI History: 30 y/o F presents with GTCS x 2. She has been started on Keppra 500mg BID and is back to her baseline. # Exam Time of Exam (): 07/20/2025 15:02 Mental Status: - awake - alert and oriented x 3 - follows commands Language: - normal speech Cranial Nerves: - normal Motor: - no drift Sensory: - normal sensation Cerebellar: - normal cerebellar exam # Assessment Impression: - Seizure # Plan Labs: - CBC - comprehensive metabolic panel Medication: - levetiracetam (Keppra) 500 mg PO or IV every 12 hours Other: - If patient has any neurological deterioration please call me back immediately - neurology referral as outpatient Additional Recommendations: Avoid sleep deprivation and target 8hrs of sleep Avoid excessive caffeine intake No driving Disposition: discharge # Logistics Attestation of consult completion: The patient is located at: [facility]. Facility staff participated in the visit. I performed this telemedicine visit from my offsite office utilizing interactive 2 way audio and visual telecommunication technology at the request of the onsite inpatient provider. Total time spent in telemedicine encounter: I spent 30 minutes reviewing clinical data and/or imaging, obtaining history, examining the patient, communicating with the onsite care team, and in preparation of this report. # Demographics First Name: SHELLIE Last Name: RAHEEM Facility: [facility] Electronically signed at 07/20/2025 17:06 () by DO Isi Bryan ELIZABETH A DO Jul 20, 2025 17:07
== END 2025-07-20 17:20 | disposition home or self-care (01) | DRG 872 ==
LOC: ER 13:14 → EDBD 13:14 → OVERFLOW 17:50 → TELE-WESTW 22:29
PROVIDERS: ADMIT Hospitalist; ATTEND Hospitalist
DX: A41.9 Sepsis, unspecified organism (principal); R56.9 Unspecified convulsions; E86.0 Dehydration; N39.0 Urinary tract infection, site not specified; Z20.822 Contact with and (suspected) exposure to COVID-19
CPT/HCPCS: 36415; 70450; 71045; 80048; 80076; 80320; 81001; 82962; 83605; 84702; 85025; 86803; 87040; 87086; 87088; 87186; 87340; 87426; 87804; G0378